=== PATIENT | male | born 1995 ===

== ENCOUNTER 2019-06-22 16:51 | Outpatient (REF) | payer MEDICARE, MEDICAID, SELFPAY ==
[2019-06-22 21:40] LABS: Calculated LDL 113 mg/dL; Cholesterol 170 mg/dL (50-200); HDL Cholesterol 40 mg/dL (40-60); Triglyceride 88 mg/dL (30-150)
== END 2019-06-22 17:11 ==
LOC: NCHCN 16:51
PROVIDERS: Visit Provider Nurse Practitioner Family
DX: Z79.899 Other long term (current) drug therapy (principal); Z13.6 Encounter for screening for cardiovascular disorders
CPT/HCPCS: 80053; 80061

== ENCOUNTER 2019-07-09 15:45 | Outpatient (REF) | payer MEDICARE, MEDICAID, SELFPAY ==
[2019-07-09 21:36] LABS: ALT 33 U/L (16-63); AST 20 U/L (15-37); Albumin 4.8 g/dL (3.4-5.0); Alkaline Phosphatase 75 U/L (46-116); Anion Gap 10.2 mmol/L (3-11); BUN 11 mg/dL (7-18); Bilirubin, Total 0.7 mg/dL (0.2-1.0); CO2 28.8 mmol/L (21.0-32.0); CREATININE 0.96 mg/dL (0.70-1.30); Calcium 9.5 mg/dL (8.5-10.1); Chloride 103 mmol/L (98-107); Glucose 82 mg/dL (70-100); Potassium 4.4 mmol/L (3.5-5.1); Sodium 142 mmol/L (136-145); Total Protein 7.5 g/dL (6.4-8.2)
== END 2019-07-09 16:05 ==
LOC: NCHCN 15:45
PROVIDERS: Visit Provider Nurse Practitioner Family
DX: F91.9 Conduct disorder, unspecified (principal); Z79.899 Other long term (current) drug therapy; Z82.49 Family history of ischemic heart disease and other diseases of the circulatory system
CPT/HCPCS: 80053

== ENCOUNTER 2022-05-13 16:15 | Outpatient (REF) | payer MEDICARE, MEDICAID, SELFPAY ==
[2022-05-14 20:04] LABS: COVID-19 RT-PCR UVMMC Result Negative (Negative)
== END 2022-05-13 16:16 | disposition home or self-care (01) ==
LOC: NCHCN 16:15
PROVIDERS: Visit Provider Nurse Practitioner Family
DX: Z20.822 Contact with and (suspected) exposure to COVID-19 (principal); Z01.818 Encounter for other preprocedural examination
CPT/HCPCS: U0003

== ENCOUNTER 2023-12-02 15:22 | Outpatient (REF) | payer MEDICARE, MEDICAID, SELFPAY | END 2023-12-02 15:23 | disposition home or self-care (01) | LOC: NCHCN 15:22 | PROVIDERS: Visit Provider Physician Assistant | DX: J02.9 Acute pharyngitis, unspecified (principal) | CPT/HCPCS: 87070 ==